=== PATIENT | male | born 1940 | race Caucasian/White ===

== ENCOUNTER 2016-11-07 09:20 | Emergency (ER) | payer OTHER ==
[~2016-11-07 09:20] MED LIST: FLUO20TA20 PO; LORA1TAB PO; LOVA40TA OR; OMEP20TA OR
[2016-11-07] MEDS ORDERED: FLUO20CA12 PO (09:38)
[2016-11-07] MEDS ORDERED: LORA1TAB12 PO (09:39)
[2016-11-07] MEDS ORDERED: OMEP40CA2 PO (09:40)
[2016-11-07] MEDS ORDERED: LOVA40TA PO (09:40)
[2016-11-07] MEDS ORDERED: SODIUM CHLORIDE 0.9% FLUSH 10 ML FLUSH IVF PRN (09:45)
[2016-11-07] MEDS ORDERED: LORazepam 2 MG/ML VIAL IV PUSH SCH (09:45)
--- NOTE | 2016-11-07 09:48 | PD ---
HPI . Near syncope Chief Complaint: Syncope/Near-Syncope Time Seen by Provider: 09:34 Travel History International Travel<30 days: No Contact w/Intl Traveler<30days: No Traveled to known affect area: No History of Present Illness HPI Patient presents for evaluation following a near syncopal event. He states that he was getting into the shower at approximately 7:30 AM when he started feeling very lightheaded. Did not fall or pass out. He believes that his symptoms are exacerbated by standing and improved by sitting down. Symptoms have been mild. He states that the symptoms were very brief. Since then, he has felt a little "wobbly" on his feet. He denies headache or diplopia. He denies nausea or vomiting. He has not noted any extremity weakness. He denies chest pain or shortness of breath. He states that he had a recent negative nuclear stress test. PFSH Past Medical History Anxiety: Yes Depression: Yes Heart Rhythm Problems: No Cancer: No Cardiac Catheterization: No Cardiovascular Problems: Yes High Cholesterol: Yes Congestive Heart Failure: No Diabetes: No Diminished Hearing: No GERD: Yes Glaucoma: No Hepatitis: No Hiatal Hernia: Yes (SX) Hypertension: Yes Myocardial Infarction: No Thyroid Disease: No Tetanus Vaccination: Unknown Influenza Vaccination: Yes Past Surgical History Abdominal Surgery: Yes (HIATAL HERNIA ) Cardiac Surgery: No Coronary Artery Bypass Graft: No Ear Surgery: No Endocrine Surgery: No Eye Surgery: Yes (RIGHT EYE CATARACT EXTRACTION) Genitourinary Surgery: No Gynecologic Surgery: No Oral Surgery: No Pacemaker: No Thoracic Surgery: No Other Surgery: Yes Social History Alcohol Use: Yes (OCC BEER) Tobacco Use: No Substance Use: No Allergies-Medications (Allergen,Severity, Reaction): Coded Allergies: No Known Allergies (Verified , 11/07/16) Reported Meds & Prescriptions Reported Meds & Active Scripts Active Reported Omeprazole 40 Mg Cap 40 Mg PO DAILY Lovastatin 40 Mg Tab 40 Mg PO DAILY Lorazepam 1 Mg Tab 1 Mg PO Q8H PRN Fluoxetine (Fluoxetine HCl) 20 Mg Capsule 20 Mg PO DAILY Review of Systems Except as stated in HPI: all other systems reviewed are Neg General / Constitutional: No: Fever, Chills Eyes: No: Diploplia HENT: Positive: Lightheadedness, No: Headaches, Vertigo Cardiovascular: No: Chest Pain or Discomfort Respiratory: No: Shortness of Breath Gastrointestinal: No: Nausea, Vomiting Neurologic: Positive: Dizziness, No: Weakness, Syncope, Focal Abnormalities, Tremor, Headache, Change in Mentation, Slurred Speech, Paresthesia, Incontinence , Seizures, Sensory Disturbance Physical Exam Narrative GENERAL: Patient is awake, alert and fully oriented. SKIN: Warm and dry. HEAD: Atraumatic. Normocephalic. EYES: Pupils equal and round. Extraocular movements are intact. ENT: No nasal bleeding or discharge. Mucous membranes pink and moist. NECK: Trachea midline. Neck is supple. CARDIOVASCULAR: Regular rate and rhythm. Heart sounds are normal. RESPIRATORY: No accessory muscle use. Lungs are clear with full air movement throughout. GASTROINTESTINAL: Abdomen soft, non-tender, nondistended. MUSCULOSKELETAL: No obvious deformities. No edema. NEUROLOGICAL: Awake and alert. No obvious cranial nerve deficits. Motor grossly within normal limits. Normal speech. [id number] exam is intact. Gait is normal. PSYCHIATRIC: Appropriate mood and affect; insight and judgment normal. Data Data Last Documented VS Vital Signs Date Time Temp Pulse Resp B/P (MAP) Pulse Ox O2 Delivery O2 Flow Rate FiO2 11/07/16 11:31 11/07/16 11:17 99 Room Air 11/07/16 11:17 95 16 11/07/16 10:04 98.0 Orders Orders Electrocardiogram (11/07/16 09:41) Basic Metabolic Panel (Bmp) (11/07/16 09:41) Complete Blood Count With Diff (11/07/16 09:41) Ckmb (Isoenzyme) Profile (11/07/16 09:41) Troponin I (11/07/16 09:41) Ct Brain W/O Iv Contrast(Rout) (11/07/16 09:41) Ecg Monitoring (11/07/16 09:41) Iv Access Insert/Monitor (11/07/16 09:41) Oximetry (11/07/16 09:41) Sodium Chloride 0.9% Flush (Ns Flush) (11/07/16 09:45) Lorazepam Inj (Ativan Inj) (11/07/16 09:45) Labs Laboratory Tests Test 11/07/16 10:00 White Blood Count 7.7 TH/MM3 Red Blood Count 6.68 MIL/MM3 Hemoglobin 13.5 GM/DL Hematocrit 44.7 % Mean Corpuscular Volume 66.8 FL Mean Corpuscular Hemoglobin 20.3 PG Mean Corpuscular Hemoglobin Concent 30.3 % Red Cell Distribution Width 15.4 % Platelet Count 369 TH/MM3 Mean Platelet Volume 7.8 FL Neutrophils (%) (Auto) 53.7 % Lymphocytes (%) (Auto) 29.5 % Monocytes (%) (Auto) 9.2 % Eosinophils (%) (Auto) 5.3 % Basophils (%) (Auto) 2.3 % Neutrophils # (Auto) 4.1 TH/MM3 Lymphocytes # (Auto) 2.3 TH/MM3 Monocytes # (Auto) 0.7 TH/MM3 Eosinophils # (Auto) 0.4 TH/MM3 Basophils # (Auto) 0.2 TH/MM3 CBC Comment AUTO DIFF Blood Urea Nitrogen 13 MG/DL Creatinine 0.87 MG/DL Random Glucose 99 MG/DL Calcium Level 8.6 MG/DL Sodium Level 140 MEQ/L Potassium Level 3.7 MEQ/L Chloride Level 104 MEQ/L Carbon Dioxide Level 26.6 MEQ/L Anion Gap 9 MEQ/L Estimat Glomerular Filtration Rate 86 ML/MIN Total Creatine Kinase 99 U/L Troponin I LESS THAN 0.02 NG/ML MDM Medical Decision Making Medical Screen Exam Complete: Yes Emergency Medical Condition: Yes Medical Record Reviewed: Yes (medical history is significant for hypertension, hyperlipidemia and anxiety/depression.) Interpretation(s) EKG shows a sinus rhythm with no ST segment elevation or depression. Differential Diagnosis Differential diagnosis of dizziness includes but is not limited to vertigo, dehydration, acute blood loss, sepsis, ACS Narrative Course This patient presents complaining with a near syncopal episode this morning. His neurological exam is intact. No associated chest pain, shortness of breath or palpitations. He denies any associated headache. I suspect a benign etiology for his symptoms. CBC & BMP Diagram 11/07/16 10:00 Calcium Level 8.6 Cardiac enzymes are negative. Last Impressions Head CT 11/07/16 0941 Signed Impressions: Service Date/Time: Monday, November 07, 2016 10:24 - CONCLUSION: Negative for acute process. Joel Jenkins MD FACR Diagnosis Primary Impression: Near syncope Patient Instructions: General Instructions, Near Syncope (DC) Disposition: 01 DISCHARGE HOME Condition: Stable Vicki Hutchinson MD Nov 07, 2016 09:48
[2016-11-07 10:04] VITALS: BP 144/65; PULSE 80; RESP 16; TEMP 98; O2SAT 99
[2016-11-07 10:06] VITALS: O2SAT 98
[2016-11-07 10:26] LABS: AUTOMATED NEUTROPHIL # 4.1 TH/MM3 (1.8-7.7); BASOPHIL # 0.2 TH/MM3 (0-0.2); BASOPHIL % 2.3 % (0.0-2.0); EOSINOPHIL # 0.4 TH/MM3 (0-0.4); EOSINOPHIL % 5.3 % (0.0-4.0); HEMATOCRIT 44.7 % (39.0-51.0); LYMPH % 29.5 % (9.0-44.0); LYMPHOCYTE # 2.3 TH/MM3 (1.0-4.8); MEAN CELL VOLUME 66.8 FL (80.0-100.0); MEAN CORPUSCULAR HEMOGLOBIN 20.3 PG (27.0-34.0); MEAN CORPUSCULAR HGB CONC 30.3 % (32.0-36.0); MONO % 9.2 % (0.0-8.0); NEUT % 53.7 % (16.0-70.0); PLATELET COUNT 369 TH/MM3 (150-450); RED BLOOD COUNT 6.68 MIL/MM3 (4.50-5.90); RED CELL DISTRIBUTION WIDTH 15.4 % (11.6-17.2); WHITE BLOOD COUNT 7.7 TH/MM3 (4.0-11.0)
[2016-11-07 10:33] LABS: CHLORIDE 104 MEQ/L (98-107); POTASSIUM 3.7 MEQ/L (3.5-5.1); SODIUM (NA) 140 MEQ/L (136-145)
[2016-11-07 10:37] LABS: ANION GAP 9 MEQ/L (5-15); BICARBONATE 26.6 MEQ/L (21.0-32.0); BLOOD UREA NITROGEN 13 MG/DL (7-18)
[2016-11-07 10:40] LABS: GLOMERULAR FILTRATION RATE 86 ML/MIN (>89)
[2016-11-07 10:44] LABS: CREATINE KINASE 99 U/L (39-308)
[2016-11-07 10:45] LABS: HEMO FLAGS AUTO DIFF
[2016-11-07 11:17] VITALS: BP 164/82; PULSE 95; RESP 16; O2SAT 98
--- NOTE | 2016-11-07 11:21 | RADRPT ---
EXAM DATE/TIME: 11/07/2016 10:24 [facility] COMPARISON: CT BRAIN W/O CONTRAST, September 19, 2011, 12:04. INDICATIONS : Dizziness. RADIATION DOSE: 64.27 CTDIvol (mGy) MEDICAL HISTORY : Hypertension. Hernia, hiatal. Gastroesophageal reflux disease. SURGICAL HISTORY : Hiatal hernia repair. ENCOUNTER: Initial ACUITY: 1 day PAIN SCALE: 0/10 LOCATION: cranial TECHNIQUE: Multiple contiguous axial images were obtained of the head. Using automated exposure control and adj ustment of the mA and/or kV according to patient size, radiation dose was kept as low as reasonably a chievable to obtain optimal diagnostic quality images. DICOM format image data is available electro nically for review and comparison. FINDINGS: CEREBRUM: The ventricles are normal for age. No evidence of midline shift, mass lesion, hemorrhage or acute in farction. No extra-axial fluid collections are seen. POSTERIOR FOSSA: The cerebellum and brainstem are intact. The 4th ventricle is midline. The cerebellopontine angle i s unremarkable. EXTRACRANIAL: The visualized portion of the orbits is intact. SKULL: The calvaria is intact. No evidence of skull fracture. Minimal chronic right maxillary sinus diseas e is evident. CONCLUSION: Negative for acute process. Joel Jenkins MD FACR on November 07, 2016 at 11:19 Board Certified Radiologist. This report was verified electronically.
[2016-11-07 11:36] LABS: SCAN/DIFF AUTO DIFF CONFIRMED
--- NOTE | 2016-11-09 11:49 | EKG ---
Date Performed: 11/07/2016 Time Performed: 10:00:24 PTAGE: 76 years EKG: Normal Sinus rhythm Probably normal EKG, unchanged from the prior tracing PREVIOUS TRACING : 09/19/2011 11.26 DOCTOR: Gerry Iniguez Interpretating Date/Time 11/09/2016 11:48:20
== END 2016-11-07 11:38 | disposition home or self-care (01) ==
LOC: PHED 09:20
DX: R55 Syncope and collapse (principal); I10 Essential (primary) hypertension; K21.9 Gastro-esophageal reflux disease without esophagitis
CPT/HCPCS: 70450; 80048; 82550; 84484; 85025; 93005; 96374; 99285; J2060